=== PATIENT | female | born 1985 | race Caucasian/White ===

== ENCOUNTER → 2020-08-22 16:07 | Outpatient (CLI) | payer OTHER, MEDICAID, SELFPAY ==
[2020-08-22 17:02] LABS: Add Manual Diff / Slide Review NO; Basophils Absolute Auto 0 /uL (0-100); Basophils Percent Auto 0.6 % (0-2); Eosinophils Absolute Auto 100 /uL (0-450); Eosinophils Percent Auto 1.5 % (2-4); Hematocrit 33.8 % (36-46); Hemoglobin 11.3 g/dL (12.0-16.0); Lymphocytes Absolute Auto 1600 /uL (1100-4500); Lymphocytes Percent Auto 32.2 % (25-40); Mean Corpuscular HGB Conc 33.3 % (30-36); Mean Corpuscular Hemoglobin 29.8 PG (26-34); Mean Corpuscular Volume 89.4 fL (80-100); Monocytes Absolute Auto 300 /uL (0-900); Monocytes Percent Auto 7.2 % (3-14); Neutrophils Absolute Auto 2800 /uL (1500-7000); Neutrophils Percent Auto 58.5 % (50-75); Platelet Count 212 X10^3/uL (150-400); Red Blood Cell Count 3.78 X10^6/uL (4.0-5.2); Red Cell Distribution Width 12.9 % (11.6-14.8); White Blood Cell Count 4.8 X10^3/uL (4.5-11.0)
[2020-08-22 17:51] LABS: Follicle Stimulating Hormone 4.45 mIU/mL; Luteinizing Hormone 5.95 mIU/mL
[2020-08-22 17:59] LABS: TSH w/ Reflex to FT4 1.13 uIU/mL (0.47-4.68)
== END ==
PROVIDERS: PCP Family Medicine; Referring Provider Family Medicine; Visit Provider Family Medicine
DX: L65.9 Nonscarring hair loss, unspecified (principal); N91.2 Amenorrhea, unspecified; R53.83 Other fatigue
CPT/HCPCS: 36415; 83001; 83002; 84443; 85025

== ENCOUNTER → 2022-10-06 06:38 | Outpatient (CLI) | payer OTHER, MEDICAID, SELFPAY ==
--- NOTE | 2022-10-06 06:39 | DI.US.S_ITS ---
PROCEDURE: US PELVIC COMPLETE INDICATIONS: DUB TECHNIQUE: Real-time scanning was performed of the pelvic organs, with image documentation. Additional endovaginal scanning was necessary due to incomplete visualization of the adnexal and endometrial structures by transabdominal scanning. COMPARISON: [facility], US, PELVIC COMPLETE, 03/15/2017, 17:26. FINDINGS: Uterus: Uterus is anteverted and normal in size at 10.7 x 7.2 x 6.5 cm. The myometrium is homogeneous. The endometrium measures 14 mm combined thickness. Mid posterior intramural fibroid measuring 1.6 x 1.6 x 1.1 cm. Ovaries: The right ovary measures 4.6 x 3.1 x 2 cm, with a calculated ovarian volume of 15 cc. The left ovary measures 3.1 x 3.1 x 1.6 cm, with a calculated ovarian volume of 8 cc. The ovaries have a normal sonographic appearance. Less than 12 follicles can be seen in each ovary. Right ovary heterogeneous isoechoic mass measuring 2.7 x 2.5 x 2.3 cm. No internal vascularity is seen. Other: Trace free fluid in the pelvis, likely physiologic. IMPRESSION: 1. Endometrium measures 14 mm. 2. Small intramural fibroid measuring 1.6 cm. 3. Right ovarian heterogeneous isoechoic mass measuring 2.7 cm. Suspect an ovarian dermoid cyst. This could be further evaluated with pelvic MRI if clinically indicated. We strive to produce accurate, complete, and clear reports of imaging services. To assist us in improving patient care, this report was composed using standard report templates and voice recognition software. Therefore, it may contain abnormal punctuation, insertions and/or omissions. Occasional wrong-word or sound-alike substitutions may occur. Though we review the report and make efforts to correct it, we do recommend that the report be read carefully in proper context to recognize any text inaccuracies. Dictated by: Stephan Austin M.D. on 10/06/2022 at 7:50 Approved by: Stephan Austin M.D. on 10/06/2022 at 7:59
== END ==
PROVIDERS: PCP Family Medicine; Referring Provider Physician Assistant; Visit Provider Physician Assistant
DX: N92.4 Excessive bleeding in the premenopausal period (principal); D25.1 Intramural leiomyoma of uterus; N83.9 Noninflammatory disorder of ovary, fallopian tube and broad ligament, unspecified
CPT/HCPCS: 36415; 76830; 76856; 82728; 83540; 83550; 84443; 85025; 93976

== ENCOUNTER → 2022-10-06 06:40 | Outpatient (CLI) | payer OTHER, MEDICAID, SELFPAY ==
[2022-10-06 07:44] LABS: Add Manual Diff / Slide Review NO; Basophils Absolute Auto 0 /uL (0-100); Basophils Percent Auto 0.5 % (0-2); Eosinophils Absolute Auto 100 /uL (0-450); Eosinophils Percent Auto 2.1 % (2-4); Hematocrit 36.2 % (36-46); Hemoglobin 12.4 g/dL (12.0-16.0); Lymphocytes Absolute Auto 1500 /uL (1100-4500); Lymphocytes Percent Auto 35.1 % (25-40); Mean Corpuscular HGB Conc 34.3 % (30-36); Mean Corpuscular Hemoglobin 30.3 PG (26-34); Mean Corpuscular Volume 88.3 fL (80-100); Monocytes Absolute Auto 300 /uL (0-900); Monocytes Percent Auto 8.3 % (3-14); Neutrophils Absolute Auto 2200 /uL (1500-7000); Platelet Count 199 X10^3/uL (150-400); Red Cell Distribution Width 13.8 % (11.6-14.8); White Blood Cell Count 4.1 X10^3/uL (4.5-11.0)
[2022-10-06 07:57] LABS: HEMOLYSIS < 15 (0-50); Iron 70 ug/dL (37-170)
[2022-10-06 08:08] LABS: Percent Iron Saturation 27 % (15-50); Total Iron Binding Capacity 259 ug/dL (265-497); Transferrin 205 mg/dL (206-381)
[2022-10-06 08:28] LABS: TSH w/ Reflex to FT4 2.37 uIU/mL (0.47-4.68)
[2022-10-06 08:32] LABS: Ferritin 16 ng/mL (6-137)
== END ==
PROVIDERS: PCP Family Medicine; Referring Provider Physician Assistant; Visit Provider Physician Assistant
DX: N92.4 Excessive bleeding in the premenopausal period (principal)
CPT/HCPCS: 36415; 82728; 83540; 83550; 84443; 85025

== ENCOUNTER → 2022-10-13 08:53 | Outpatient (CLI) | payer OTHER, MEDICAID, SELFPAY ==
[2022-10-13 11:41] LABS: TSH w/ Reflex to FT4 1.68 uIU/mL (0.47-4.68)
== END ==
PROVIDERS: PCP Family Medicine; Referring Provider Obstetrics & Gynecology; Visit Provider Obstetrics & Gynecology
DX: N92.4 Excessive bleeding in the premenopausal period (principal)
CPT/HCPCS: 36415; 83001; 84443

== ENCOUNTER 2023-01-14 12:11 | Day surgery (SDC) | payer OTHER, MEDICAID, SELFPAY ==
[2023-01-11 15:16] VITALS: BMI 35.9
[2023-01-14] VITALS (8 sets, daily range): BP systolic 95–121; BP diastolic 46–77; PULSE 78–106; RESP 10–16; TEMP 36.4–36.9; O2SAT 90–99; BMI 35.9; BMI 35.5
--- NOTE | 2023-01-14 | PATH_ITS ---
[facility] Accession Number: [id number] No. of containers..02 Tissue . 01 Material submitted: . PART A: uterus - UTERUS / BILATERAL FALLOPIAN TUBES PART B: ovary - RIGHT OVARY . 01 Diagnosis: A. Uterus, Cervix, Left and Right Fallopian Tubes, Hysterectomy and Bilateral Salpingectomy: Cervix: Chronic cervicitis. Endometrium: Secretory. Myometrium: Single leiomyoma without significant atypia. Serosa: No significant pathologic abnormalities. Fallopian tubes: Benign benign paratubal cysts. . B. 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 Negative for malignancy. [facility] 01/19/2023 1701 Local . 01 Electronically signed: . Mayi Forrester MD, Pathologist NPI- [id number] . 01 Gross description: . A. Received in formalin labeled with the patient's name, , and uterus and R and L fallopian tubes, and consists of an intact uterus (205 grams, 10.4 SI, 8.0 mL, 5.2 APCM), with attached cervix (3.2 x 2.9 cm), an intact, fimbriated fallopian tube (5.2 x 0.6 cm) and a fragmented fimbriated fallopian tube (reapproximated to measure 5.2 cm in length and 0.6 cm in diameter), with no additional adnexa. The ectocervix is pink-ramos, smooth, and glistening with a purple suture at the approximate 10 o'clock position with no designation per the requisition. The cervical os is patulous and measures 0.9 cm in diameter. The serosa is ramos and smooth with no evidence of adhesion or hemorrhage identified. The anterior paracervical margin is inked blue while the posterior paracervical margin is inked black. The endocervical canal has ramos herringbone mucosa and measures 2.7 cm in length. The endometrial cavity measures 2.6 cm from cornu to cornu, and 5.3 cm in length with red-pink lush endometrium that averages 0.3 cm thick with no lesions identified. The myometrium is pink-ramos and trabecular measuring up to 2.8 cm in maximum thickness and is significant for a single well-circumscribed white whorled nodule measuring 1.0 cm in greatest dimension located intramurally with no hemorrhage or necrosis identified. The intact fallopian tube has ramos smooth serosa with no cystic structures identified, and sectioning reveals an unremarkable stellate lumen. The disrupted fallopian tube has ramos smooth serosa with a cystic structure near the fimbriated end measuring 0.7 cm in greatest dimension filled with cloudy gelatinous material. Sectioning reveals an unremarkable stellate lumen. Gang Boss sections are submitted as follows: A1: Anterior cervix. A2: Posterior cervix. A3: Anterior full thickness section. A4-A5: Composite posterior full thickness section to include nodule. A6: Serosa. A7: Intact fallopian tube to include one-half of bisected fimbriae and cross-sections. A8: Fragmented fallopian tube to include one-half of bisected fimbriae, cystic structure, and cross-sections. B. Received in formalin labeled with the patient's name, , and R. ovary, and consists of a disrupted, cerebriform ovary weighing 14 grams and measuring 4.7 x 2.6 x 2.1 cm. The disrupted area measures 0.9 cm in greatest dimension and reveals ramos grumous material admixed with hair. The external surface is inked blue, and sectioning reveals multiple cystic structures with thin, smooth shay, and no excrescences identified. The cystic structure containing grumous material and hair measures 2.3 x 1.4 x 0.5 cm with adjacent yellow soft tissue. The additional smooth-walled cystic structures contain serous fluid and measure up to 1.2 cm in greatest dimension. The remaining ovarian parenchyma is physiologic and unremarkable with no lesions identified. Gang Boss sections are submitted as follows: B1-B4: Gang Boss cystic structures. B5: Gang Boss normal ovary. (:[id number]) /RICK 01/15/2023 1015 Local . 01 Pathologist provided ICD-10: D25.9 . 01 CPT . 022782, [id number] Specimen Comment: A courtesy copy of this report has been sent to [phone] Performed at: 01 [facility] [address] [place] [address], [place], [place] [id number] MD Wilder Berman MD Phone: [phone]
[2023-01-14] MEDS: LACTATED RINGERS 1,000 ML 42 ML IV (12:51)
[2023-01-14] MEDS: SCOPOLAMINE 1 PATCH TOP (12:54)
[2023-01-14 13:12] LABS: COVID19 -Nasal RAPID Negative (Negative)
--- NOTE | 2023-01-14 13:42 | SUR.OPER ---
Lithotomy on padded OR bed. [place] Pad Positioner under torso. Head on pillow, arms padded and tucked at sides. Legs secured in padded yellow fins stirrups.
[2023-01-14] MEDS: ACETAMINOPHEN 325 MG TABLET 975 MG PO (13:47)
--- NOTE | 2023-01-14 13:57 | PM.PREOP ---
Pre-operative Note COVID-19 COVID-19 status: Negative Result date/Date tested (Pos, Neg/Pending): 01/14/23 Criteria for continued procedure: Non-surgical alternatives not available or appropriate per current SOC Interval Note History & Physical reviewed/Exam performed by Physician: Yes Changes to H&P: No
[2023-01-14] MEDS: BUPIVACAINE 0.5% (PF) 10 ML VIAL INJ (15:22)
[2023-01-14] MEDS: ROPIVACAINE 0.2% PF 2 MG/ML 20ML AMP 20 ML INJ (15:26)
--- NOTE | 2023-01-14 17:06 | PM.GYNOP.1 ---
Operative Date/Time/Diagnoses Date of procedure: 01/14/23 Time of procedure: 14:50 Pre-op diagnosis: Menorrhagia Uterine fibroids Dermoid cyst, right ovary Post-op diagnosis: same Procedure & Clinicians Procedure: Procedures Operation Date: 01/14/23 13:30 Actual Procedure Side Surgeon p Total Laparoscopic Hysterectomy w. bilateral salpingectomy, Right ovarian cystectomy, poss. right oophorectomy Stanley Burns MD Indications: Torrie is a 36-year-old , LMP currently ongoing after starting about 7 weeks ago, who presented in October for evaluation of the menorrhagia.? Patient experienced menarche at age 10 and had regular predictable menses up until about 18-24 months ago.? She is had 6 vaginal births and contraception is by vasectomy.? Starting at 18-24 months ago, she began to have intermenstrual spotting and bleeding which combined with lengthening menses resulted in her often bleeding for weeks at a time periods.? She became anemic and was treated with iron therapy but no other intervention/evaluation was undertaken.? She also started having night sweats about 6 months ago but FSH and LH done 08/2020 were normal and thyroid studies have also been normal.? Of note however is mild elevation of AST on 2 separate occasions.? Recent pelvic ultrasound performed 10/06/2022 shows: FINDINGS:? ?? Uterus:? Uterus is anteverted and normal in size at 10.7 x 7.2 x 6.5 cm. The myometrium is homogeneous. ? The endometrium measures 14 mm combined thickness.? Mid posterior intramural fibroid measuring 1.6 x 1.6 x 1.1 cm. ? Ovaries:? The right ovary measures 4.6 x 3.1 x 2 cm, with a calculated ovarian volume of 15 cc. The left ovary measures 3.1 x 3.1 x 1.6 cm, with a calculated ovarian volume of 8 cc. The ovaries have a normal sonographic appearance. Less than 12 follicles can be seen in each ovary.? Right ovary heterogeneous isoechoic mass measuring 2.7 x 2.5 x 2.3 cm.? No internal vascularity is seen. ? Other:? Trace free fluid in the pelvis, likely physiologic.? ? IMPRESSION:? 1. Endometrium measures 14 mm. ? 2. Small intramural fibroid measuring 1.6 cm. ? 3. Right ovarian heterogeneous isoechoic mass measuring 2.7 cm.? Suspect an ovarian dermoid cyst.? This could be further evaluated with pelvic MRI if clinically indicated. Patient had endometrial sampling and Pap in October, both of which were normal.? She had an abnormal Pap in her early 20s which was treated with colposcopy and cryotherapy but all of her Paps since that time been negative.? We had another extended discussion regarding potential next steps and how the patient would prefer to proceed.? The patient does not want to pursue any option which can not guarantee her resolution of her menorrhagia.? As result she does not wish to have a Mirena IUD inserted, used Depo-Provera, or have an endometrial ablation performed.? Instead she wants to move forward with total laparoscopic hysterectomy and bilateral salpingo oophorectomy.? Ovarian cystectomy on the right side would also be performed at the same time with the possibility of right oophorectomy.? She presents today for preoperative evaluation, counseling, and consent. Surgeon: Stanley Burns Quenching Machine Operator: Judi Luis Anesthesia Type: General Operative Notes Findings: The uterus is 8 weeks in size and myomatous in contour. The anterior and posterior cul-de-sacs are free of any adhesions or endometrial implants. The left ovary and tube are normal. The right tube is also normal but the right ovary is enlarged and contains a 3 cm dermoid cyst within its substance. The remainder of the abdomen and upper abdomen are normal to laparoscopic inspection. Closure Type: primary Specimen(s): left tube, right tube, uterus and other (Right ovary with dermoid cyst) Applied: catheter Estimated blood loss (mL): 200 Blood products transfused: none Procedure in detail: With the patient in modified dorsal lithotomy position preparations were made by prepping and draping the patient in usual manner for vaginal surgery and insertion of Cooper catheter. A pre-surgical time-out was then taken in accordance with [facility] policy. A bivalve speculum was then placed in the vagina and the cervix visualized. The anterior lip of the cervix was then grasped with a single-tooth tenaculum. The uterus was sounded to 9 cm, the endocervical canal dilated slightly, and a VCare uterine manipulator with a large colpotomy cup was placed. The umbilicus was then infiltrated with 0.5% Marcaine with epinephrine. A 2 cm umbilical incision was made vertically and the dissection was carried down to the umbilicus fascia which was grasped with 2 Manuela clamps. Metzenbaum scissors were used to incise the fascia transversely and each angle was secured with 0 Vicryl suture. Peritoneum was then entered under direct vision and a 12 mm Carl cannula was introduced through the incision and secured in place with the stay sutures. The scope was placed through the trocar and the initial assessment of the intra-abdominal contents carried out. A 2nd and 3rd 5 mm port was then placed 1st in the right mid quadrant from then the left mid quadrant by infiltration of the skin and subcutaneous tissues, a 1 cm transverse incision and insertion of the 5 mm bladeless port. Using a 3 puncture technique, the abdomen and pelvis were inspected laparoscopy and photographically documented. Uterus is mobilized with the VCare manipulator and attention turned to the left adnexa. The distal tube was then grasped and the fimbria varicose divided after coagulation with the PowerSeal device. The dissection was then carried out toward the cornua and the fallopian tube amputated. The tube was removed through a 5 mm port. The right ovary was then examined carefully and stabilized with an atraumatic grasping forceps. Using monopolar current, the ovarian capsule was scored and an incision made over the bulk of the dermoid within the right ovary. The surface of the ovary was then scored with monopolar current and the incision the ovary was extended so as to be able to dissect out the dermoid capsule. Unfortunately the dermoid capsule was densely adherent to the ovarian stroma and could not be from the stroma itself. Due to bleeding from the ovary itself and the fact that the ovary could not be safely from the adherent dermoid capsule, the decision was made to remove the right ovary instead of performing a cystectomy. The ovary was mobilized and the infundibulopelvic ligament was then coagulated and divided with the PowerSeal device and the ovary as well as the dermoid cyst debris was removed completely with an Endo-Catch bag. Dissection was then carried down using the PowerSeal device so as to divide the utero-ovarian ligament and the round ligament with blunt and sharp dissection of the broad down to the level of the uterine artery on the left side. The uterine artery was then skeletonized after development of a bladder flap, coagulated, and divided. Once hemostasis was assured on the left side attention was turned to the right and the tube, utero-ovarian ligament, round ligament, and broad ligament were dissected in a fashion exactly the same as it had been on the left. The right uterine artery was then visualized after skeletonization and coagulated and divided. The uterus was seen to mendoza after coagulation of both your arteries and the cup was identified through the vaginal muscularis at its insertion with the body of the cervix. Circumferential excision of the vaginal cup was accomplished without difficulty using monopolar current and the uterus mobilized. The uterus was then removed through the vagina and the vaginal cuff closed [id number] with a series of 0 Vicryl [id number] stitches. Hemostasis was excellent, the abdomen was re-insufflated, and the pelvis inspected laparoscopically. The pelvis was inspected for any abnormality or bleeding, and the ureters were each seen to be peristalsing freely. With complete hemostasis assured, the pneumoperitoneum was vented and the ports removed. All of the 5 mm ports were then closed with 4-0 Monocryl on the skin using inverted interrupted sutures. Skin glue was placed and after the glue was dried, an appropriate dressing was applied. The case was then terminated, the patient awakened, and then transferred to PACU after having tolerated the procedure well. Complications: none Post-operative Condition: stable Disposition: PACU Plan for aftercare: Recovery in ambulatory surgery in discharge home later today if pain is under control and she is tolerating oral intake well.
[2023-01-14] MEDS: OXYCODONE IR 5 MG TABLET PO ×2 (17:18→20:04)
[2023-01-14] MEDS: hydrOXYzine 50 MG/ML INJ 25 MG IM (17:19)
--- NOTE | 2023-01-14 17:24 | SUR.PHASEI ---
Report called to
--- NOTE | 2023-01-14 17:44 | SUR.PHASEI ---
Patient transferred to the floor by stretcher with purse and belongings bag. Patient transferred to the bed independently/SBA. Report given to Promise. VS stable. Abdominal dressings CDI, scant serosang drainage to peripad. IV saline locked.
--- NOTE | 2023-01-14 18:25 | PC.NURSE ---
Pt arrived at 1730 A/O, denies discomfort HL intact/patent Stable post op course. Call light w/in reach, pt calls appropriately for needs. COntinue w/plan of care.
[2023-01-14] MEDS: KETOROLAC 30 MG/ML VIAL IV (19:56)
[2023-01-15] MEDS: OXYCODONE IR 5 MG TABLET PO ×2 (00:01→05:08)
[2023-01-15] MEDS: ACETAMINOPHEN 325 MG TABLET 650 MG PO ×2 (00:02→05:08)
[2023-01-15 00:18] VITALS: BP 116/64; PULSE 86; RESP 16; TEMP 37; O2SAT 97
[2023-01-15] MEDS: SODIUM CHLORIDE 0.9% FLUSH 10 ML IV ×2 (02:03→08:28)
[2023-01-15] MEDS: KETOROLAC 30 MG/ML VIAL IV ×2 (02:03→07:37)
[2023-01-15 05:07] VITALS: BP 104/44; PULSE 81; RESP 15; TEMP 36.8; O2SAT 98
[2023-01-15 06:20] LABS: Add Manual Diff / Slide Review NO; Basophils Absolute Auto 0 /uL (0-100); Basophils Percent Auto 0.3 % (0-2); Eosinophils Absolute Auto 0 /uL (0-450); Eosinophils Percent Auto 0.1 % (2-4); Hematocrit 32.7 % (36-46); Hemoglobin 11.5 g/dL (12.0-16.0); Lymphocytes Absolute Auto 1100 /uL (1100-4500); Lymphocytes Percent Auto 11.5 % (25-40); Mean Corpuscular HGB Conc 35.1 % (30-36); Mean Corpuscular Hemoglobin 31.2 PG (26-34); Monocytes Absolute Auto 600 /uL (0-900); Monocytes Percent Auto 6.2 % (3-14); Neutrophils Absolute Auto 8000 /uL (1500-7000); Neutrophils Percent Auto 81.9 % (50-75); Platelet Count 237 X10^3/uL (150-400); Red Blood Cell Count 3.67 X10^6/uL (4.0-5.2); Red Cell Distribution Width 13.2 % (11.6-14.8); White Blood Cell Count 9.8 X10^3/uL (4.5-11.0)
--- NOTE | 2023-01-15 06:24 | PC.NURSE ---
Cooper catheter discontinued @ 0600, tolerated procedure well. No C/O pain & any discomfort, will report to day RN.
--- NOTE | 2023-01-15 07:49 | P.DS_ITS ---
History of Present Illness History of Present Illness Date Patient Seen: 01/15/23 Time Patient Seen: 07:49 Chief complaint: Menorrhagia, uterine fibroids, dermoid cyst, right Narrative: Torrie is a 36-year-old , LMP currently ongoing after starting about 7 weeks ago, who presented in October for evaluation of the menorrhagia.? Patient experienced menarche at age 10 and had regular predictable menses up until about 18-24 months ago.? She is had 6 vaginal births and contraception is by vasectomy.? Starting at 18-24 months ago, she began to have intermenstrual spotting and bleeding which combined with lengthening menses resulted in her often bleeding for weeks at a time periods.? She became anemic and was treated with iron therapy but no other intervention/evaluation was undertaken.? She also started having night sweats about 6 months ago but FSH and LH done 08/2020 were normal and thyroid studies have also been normal.? Of note however is mild eleva tion of AST on 2 separate occasions.? Recent pelvic ultrasound performed 10/06/2022 shows: FINDINGS:? ?? Uterus:? Uterus is anteverted and normal in size at 10.7 x 7.2 x 6.5 cm. The myometrium is homogeneous. ? The endometrium measures 14 mm combined thickness.? Mid posterior intramural fibroid measuring 1.6 x 1.6 x 1.1 cm. ? Ovaries:? The right ovary measures 4.6 x 3.1 x 2 cm, with a calculated ovarian volume of 15 cc. The left ovary measures 3.1 x 3.1 x 1.6 cm, with a calculated ovarian volume of 8 cc. The ovaries have a normal sonographic appearance. Less than 12 follicles can be seen in each ovary.? Right ovary heterogeneous isoechoic mass measuring 2.7 x 2.5 x 2.3 cm.? No internal vascularity is seen. ? Other:? Trace free fluid in the pelvis, likely physiologic.? ? IMPRESSION:? 1. Endometrium measures 14 mm. ? 2. Small intramural fibroid measuring 1.6 cm. ? 3. Right ovarian heterogeneous isoechoic mass measuring 2.7 cm.? Suspect an ovarian dermoid cyst.? This could be further evaluated with pelvic MRI if clinically indicated. Patient had endometrial sampling and Pap in October, both of which were normal.? She had an abnormal Pap in her early 20s which was treated with colposcopy and cryotherapy but all of her Paps since that time been negative.? We had another extended discussion regarding potential next steps and how the patient would prefer to proceed.? The patient does not want to pursue any option which can not guarantee her resolution of her menorrhagia.? As result she does not wish to have a Mirena IUD inserted, used Depo-Provera, or have an endometrial ablation performed.? Instead she wants to move forward with total laparoscopic hysterectomy and bilateral salpingo oophorectomy.? Ovarian cystectomy on the right side would also be performed at the same time with the possibility of right oophorectomy.? She is admitted now for her scheduled surgery. Discharge Providers Provider Date of admission: 01/14/2023 Discharge Date: 01/15/23 Primary care physician: Andrea Chen MD Discharge provider: Stanley Burns MD Summary Hospital Course Discharge Diagnosis: Menorrhagia Uterine fibroids Dermoid cyst, right ovary Status post total laparoscopic hysterectomy with left salpingectomy and right salpingo oophorectomy. Hospital Course: Torrie was admitted on the morning of 01/14/2023 in early on the afternoon of 01/14/2023 underwent an uneventful total laparoscopic hysterectomy with left salpingectomy and right salpingo-oophorectomy. Details of the procedure well summarized on my operative note of that date. Following surgery the patient has done extremely well with prompt return of bowel and bladder function, she is ambulating independently, tolerating regular diet, and her pain is well controlled with oral pain medications. She will be discharged at this time to home in an afebrile normotensive condition after counseling regarding precautionary symptoms, limitations activity, medications, and plans for follow- up which will be in 2 weeks. Medications at discharge will include resumption of all of her preadmission medications and oxycodone 5 mg, 1 tab p.o. q.6 to 8 hours as needed pain. In addition she is prescribed Cipro 500 mg p.o. b.i.d. x5 days for UTI prophylaxis following catheterization. Status at Discharge Cognitive/behavioral status at discharge: oriented Functional status at discharge: independent ambulation Overall status at discharge: patient is progressing back to baseline Time Spent with Patient Time spent: Less than 30 minutes Exam Vital Signs (past 8 hours): - 01/15/23 00:18 01/15/23 05:07 Temperature 98.6 F 98.2 F Pulse Rate 86 81 Respiratory Rate 16 15 Blood Pressure 116/64 104/44 L Pulse Oximetry 97 98 Oxygen Flow Rate 0 0 Oxygen Delivery Method Room Air Oxygen Flow Rate 0 Const General: cooperative and comfortable Nutritional Appearance: average body habitus Orientation: alert and oriented x3 HENMT Head: normal to inspection, atraumatic and abrasion Ears: hearing grossly normal bilaterally Face and sinus: face symmetric Eyes General: appearance normal, both eyes and all related structures Conjunctivae: conjunctivae normal Sclera: sclerae normal EOM: EOM intact bilaterally Neck Neck: normal visual inspection Resp Effort & Inspection: normal respiratory effort and able to speak in complete sentences Auscultation: clear to auscultation bilaterally Cardio Rate: regular rate Rhythm: regular rhythm Heart Sounds: S1 normal, S2 normal and no murmurs GI Inspection: normal to inspection and incision (Surgical dressings clean and dry) Palpation: soft, no hepatosplenomegaly and tender (Mild, diffuse postsurgical tenderness) External Female Exam: other (No significant bleeding noted) Extrem General: no calf tenderness Psych Appearance: grossly normal Mental Status: mental status grossly normal Speech and Movement: speech and movement normal Mood: congruent mood Affect: normal affect Attitude: cooperative Thought Process: normal Thought Content: normal Judgment: judgment good Objective Labs 01/15/23 06:06 Labs: Laboratory Results - last 24 hr 01/14/23 01/15/23 12:50 06:06 WBC 9.8 RBC 3.67 L Hgb 11.5 L Hct 32.7 L MCV 89.0 MCH 31.2 MCHC 35.1 RDW 13.2 Plt Count 237 Neut % (Auto) 81.9 H Lymph % (Auto) 11.5 L [place] % (Auto) 6.2 Eos % (Auto) 0.1 L Baso % (Auto) 0.3 Neut # (Auto) 8000 H Lymph # (Auto) 1100 [place] # (Auto) 600 Eos # (Auto) 0 Baso # (Auto) 0 SARS-CoV-2 (PCR) Negative [facility] Medical History (Updated 10/27/22 @ 15:37 by Stanley Burns MD) Spontaneous vaginal delivery Social History household members: spouse Smoking Status: Former smoker alcohol intake: never Discharge Assessment & Plan Assessment and Plan Assessment: Menorrhagia Uterine fibroids Dermoid cyst, right ovary Status post total laparoscopic hysterectomy with left salpingectomy and right salpingo oophorectomy Discharge Plan Discharge Plan Patient Disposition: Home Provider Discharge Comment: Please review the written instructions you received when you were discharged from the hospital. Your follow-up appointment will be 2 weeks after your procedure and I look forward to seeing you then. If however in the meanwhile you have any questions, concerns, or other issues, please contact me either through the office phone at [phone], or via the patient portal. Discharge orders & Medications Discharge Orders: Discharge (Order); Ordered 01/15/23 Ordered By: Stanley Burns Prescriptions: New oxycodone 5 mg tablet 5 mg PO Q6H PRN (Reason: pain) 5 Days Qty: 20 0RF ciprofloxacin HCl [Cipro] 500 mg tablet 500 mg PO BID 5 Days Qty: 10 0RF Continued sertraline 100 mg tablet 200 mg PO DAILY Qty: 60 4RF Follow up/Referrals: Andrea Chen MD [Primary Care Provider] - Stanley Burns MD [Physician] - Diet/Activity/Treatments Diet: Diet as Tolerated Activity: As tolerated Other treatments: [id number]-rrlnjai Tylenol and/or ibuprofen may be used for additional pain relief. Shdx-lfz-msynafy stool softeners and/or MiraLax may be used as needed for constipation. Skin/Wound/Dressing Care Report to your healthcare provider any signs of infection, such as:: chills, fever, increased pain, unusual drainage and unusual redness Dressing: Dressing should be removed on the morning of 01/17/2023 Visit Report/Discharge Packet Instructions: DI for Hysterectomy, DI for Laparoscopy, DI for Prescription Opioid Use Print Language: [place] Discharge Data Primary Care Provider: Andrea Chen Attending Provider: Stanley Burns Quality VTE Deep Vein Thrombosis/Pulmonary Embolism Present on Admission: No
[2023-01-15 08:23] VITALS: BP 109/49; PULSE 67; RESP 16; TEMP 36.3; O2SAT 99
[2023-01-15] MEDS: SERTRALINE 50 MG TABLET 200 MG PO (08:25)
--- NOTE | 2023-01-15 09:25 | PC.NURSE ---
Pt A&Ox4, VSS, independent in the room. IV removed, tolerated well. Discharge information reviewed with patient and spouse, patient able to teach back independently. Pt declined wheelchair for escort out. Pt escorted downstairs by spouse and discharged home with ride from spouse.
== END 2023-01-15 09:24 | disposition home or self-care (01) ==
LOC: OR 12:12 → AC 12:12
PROVIDERS: PCP Family Medicine; Referring Provider Obstetrics & Gynecology; Visit Provider Obstetrics & Gynecology
PROC: 0UT94ZZ Resection of Uterus, Percutaneous Endoscopic Approach (ICD-10-PCS; CPT 58571; principal; 2023-01-14 13:30)
DX: N92.0 Excessive and frequent menstruation with regular cycle (principal); D25.1 Intramural leiomyoma of uterus; Z20.822 Contact with and (suspected) exposure to COVID-19; D27.0 Benign neoplasm of right ovary; N72 Inflammatory disease of cervix uteri; N83.8 Other noninflammatory disorders of ovary, fallopian tube and broad ligament
CPT/HCPCS: 58571; 36415; 85025; 87635; C9803; J0690; J1100; J1170; J1885; J2405; J2704; J2795; J3010; J3410

== ENCOUNTER → 2023-08-12 15:15 | Outpatient (CLI) | payer OTHER, MEDICAID, SELFPAY ==
[2023-01-14 17:35] VITALS: BMI 35.5
== END ==
PROVIDERS: Family Provider Family Medicine; PCP Family Medicine; Referring Provider Physician Assistant; Visit Provider Physician Assistant
DX: R00.2 Palpitations (principal); R00.0 Tachycardia, unspecified; R06.02 Shortness of breath
CPT/HCPCS: 93246

== ENCOUNTER 2024-05-16 11:31 | Emergency (ER) | payer OTHER, MEDICAID, SELFPAY ==
[2024-05-16 11:32] VITALS: BMI 35.5
[2024-05-16 11:36] VITALS: BP 143/95; PULSE 85; RESP 18; TEMP 37.3; O2SAT 100; BMI 34.5
--- NOTE | 2024-05-16 11:44 | DI.RAD.S_ITS ---
PROCEDURE: XR CHEST 1V INDICATIONS: chest pain TECHNIQUE: One view of the chest was acquired. COMPARISON: None. FINDINGS: Surgical changes and devices: None. Lungs and pleura: Lungs are clear. No pleural effusions or pneumothorax. Mediastinum: Mediastinal contours appear normal. Heart size is normal. Bones and chest wall: No suspicious bony lesions. Overlying soft tissues appear unremarkable. IMPRESSION: No acute cardiopulmonary abnormality is seen. Dictated by: Joy Rolle MD, PhD on 05/16/2024 at 12:31 Approved by: Joy Rolle MD, PhD on 05/16/2024 at 12:31
[2024-05-16 11:45] VITALS: BP 138/79; PULSE 86; O2SAT 99
--- NOTE | 2024-05-16 11:50 | EKG_ITS ---
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
--- NOTE | 2024-05-16 11:51 | ED_ITS ---
HPI - Chest Pain General Chief Complaint: Chest Pain Stated Complaint: pain in heart Time Seen by Provider: 05/16/24 11:46 Source: patient Mode of arrival: Ambulatory History of Present Illness HPI narrative: Patient is a 38-year-old female. She states that she was here for ?heart pain? but according to her history it is chest discomfort and palpitations. She initially had discomfort about a year ago. Was seen by her primary doctor. Had a Holter monitor. Was told everything was okay. Was offered a referral to see Cardiology with the patient declined. She states that everything seemed to be okay until just recently where she started to have the symptoms once again. States she had them at the end of last week. She also had 1 episode of vomiting. She was no longer nauseous. She was currently having the discomfort now. Also having palpitations. No fevers. Related Data Previous Rx's Medication Instructions Recorded sertraline 100 mg tablet 200 mg (2 x 100 mg) PO DAILY #180 03/27/24 tabs Allergies Allergy/AdvReac Type Severity Reaction Status Date / Time No Known Drug Allergies Allergy Verified 08/03/23 16:27 Review of Systems Review of Systems ROS Unobtainable: All systems reviewed & are unremarkable except as noted in HPI and below Patient History Medical History Dermoid cyst of right ovary Menorrhagia, premenopausal Spontaneous vaginal delivery Social History household members: spouse Smoking Status: Current every day smoker alcohol intake: never Smoking Status: Current every day smoker tobacco type: vaping Substance Use Type: does not use Exam Initial Vital Signs Initial Vital Signs: Vital Signs Temperature 99.1 F 05/16/24 11:36 Pulse Rate 85 05/16/24 11:36 Respiratory Rate 18 05/16/24 11:36 Blood Pressure 143/95 H 05/16/24 11:36 Pulse Oximetry 100 05/16/24 11:36 Oxygen Delivery Method Room Air 05/16/24 11:36 Const General: cooperative, comfortable and No ill appearing HENIN Head: normal to inspection and normocephalic Resp Effort & Inspection: normal respiratory effort Auscultation: clear to auscultation bilaterally Cardio Rate: regular rate Rhythm: regular rhythm GI Inspection: normal to inspection Skin General: no rashes or lesions noted Neuro General: patient alert, patient awake and moves all extremities Extrem General: capillary refill normal Course Orders Ordered: ED Orders 05/16/24 11:44 XR chest 1V Stat EKG-12 Lead Stat 05/16/24 12:11 Complete Blood Count AUTO DIFF Stat Comprehensive Metabolic Panel Stat Lipase Stat Magnesium Stat Troponin & CK Cardiac Panel Stat Vital Signs Vital signs: Vital Signs - 8 hr 05/16/24 11:36 05/16/24 11:45 05/16/24 11:45 Temperature 99.1 F Pulse Rate 85 86 Respiratory Rate 18 Blood Pressure 143/95 H 138/79 Pulse Oximetry 100 99 Oxygen Delivery Method Room Air 05/16/24 12:00 05/16/24 12:00 05/16/24 12:30 Temperature Pulse Rate 83 77 Respiratory Rate 20 18 Blood Pressure 127/65 Pulse Oximetry 97 97 Oxygen Delivery Method Room Air 05/16/24 12:30 Temperature Pulse Rate Respiratory Rate Blood Pressure 106/60 Pulse Oximetry Oxygen Delivery Method MDM - Chest Pain Lab Data Attestation: I reviewed the patient's lab results. 05/16/24 12:11 05/16/24 12:11 Labs: Lab Results 05/16/24 Range/Units 12:11 WBC 5.1 (4.5-11.0) X10^3/uL RBC 3.97 L (4.0-5.2) X10^6/uL Hgb 12.3 (12.0-16.0) g/dL Hct 36.2 (36-46) % MCV 91.2 (80-100) fL MCH 31.1 (26-34) PG MCHC 34.1 (30-36) % RDW 13.0 (11.6-14.8) % Plt Count 239 (150-400) X10^3/uL Neut % (Auto) 59.1 (50-75) % Lymph % (Auto) 33.1 (25-40) % [place] % (Auto) 6.2 (3-14) % Eos % (Auto) 0.9 L (2-4) % Baso % (Auto) 0.7 (0-2) % Neut # (Auto) 3000 (1728-6118) /uL Lymph # (Auto) 1700 (3495-7255) /uL [place] # (Auto) 300 (0-900) /uL Eos # (Auto) 0 (0-450) /uL Baso # (Auto) 0 (0-100) /uL Sodium 133 L (137-145) mmol/L Potassium 4.0 (3.4-5.1) mmol/L Chloride 102 (98-107) mmol/L Carbon Dioxide 26 (22-32) mmol/L BUN 11 (7-17) mg/dL Creatinine 0.57 (0.52-1.04) mg/dL Estimated GFR > 60 (>60) mL/min BUN/Creatinine Ratio 19.3 (6-22) Glucose 104 H (70-100) mg/dL Calcium 9.1 (8.4-10.2) mg/dL Magnesium 1.5 L (1.6-2.3) mg/dL Total Bilirubin 0.5 (0.2-1.3) mg/dL AST 20 (14-36) IU/L ALT 14 (<35) IU/L Alkaline Phosphatase 60 (38-126) U/L Total Creatine Kinase 54 (30-135) U/L Troponin I < 0.012 (0.01-0.034) ng/mL Total Protein 7.3 (6.3-8.2) g/dL Albumin 4.3 (3.5-5.0) g/dL Globulin 3.0 (1.7-4.1) g/dL Albumin/Globulin Ratio 1.4 (1.0-2.8) Lipase 51 (23-300) U/L Imaging Data Chest x-ray: Radiologist's Impression: PROCEDURE: XR CHEST 1V INDICATIONS: chest pain TECHNIQUE: One view of the chest was acquired. COMPARISON: None. FINDINGS: Surgical changes and devices: None. Lungs and pleura: Lungs are clear. No pleural effusions or pneumothorax. Mediastinum: Mediastinal contours appear normal. Heart size is normal. Bones and chest wall: No suspicious bony lesions. Overlying soft tissues appear unremarkable. IMPRESSION: No acute cardiopulmonary abnormality is seen. ECG Data Attestation: I personally reviewed and interpreted this ECG as follows: Interpretation: Sinus rhythm Ventricular rate 90 Normal QRS Normal QTC Nonspecific ST T wave changes MDM Narrative Medical decision making narrative: Troponin is negative. Chest x-rays negative. Nonischemic EKG. Low risk for ACS. Low suspicion for PE. Patient does not have pneumonia. No skin changes over the area concerning for cellulitis. Advised that the patient contact her primary care doctor for a follow-up. She was given return precautions. She expressed understanding and agreement. Discharge Plan Departure Patient Disposition: Home Clinical Impression: Atypical chest pain Instructions: DI for Atypical Chest Pain Activity Restrictions/Additional Instructions: Recommend that you contact your primary care doctor for a follow-up to discuss further evaluation if needed. Return to the emergency department for new symptoms. Prescriptions: No Action sertraline 100 mg tablet 200 mg PO DAILY Qty: 180 0RF Referrals: Andrea Chen MD [Primary Care Provider] - Stand Alone Forms: Patient Portal/API
[2024-05-16 12:00] VITALS: BP 127/65; PULSE 83; RESP 20; O2SAT 97
[2024-05-16 12:25] LABS: Add Manual Diff / Slide Review NO; Basophils Absolute Auto 0 /uL (0-100); Basophils Percent Auto 0.7 % (0-2); Eosinophils Absolute Auto 0 /uL (0-450); Eosinophils Percent Auto 0.9 % (2-4); Hematocrit 36.2 % (36-46); Hemoglobin 12.3 g/dL (12.0-16.0); Lymphocytes Absolute Auto 1700 /uL (1100-4500); Lymphocytes Percent Auto 33.1 % (25-40); Mean Corpuscular HGB Conc 34.1 % (30-36); Mean Corpuscular Hemoglobin 31.1 PG (26-34); Mean Corpuscular Volume 91.2 fL (80-100); Monocytes Absolute Auto 300 /uL (0-900); Monocytes Percent Auto 6.2 % (3-14); Neutrophils Absolute Auto 3000 /uL (1500-7000); Neutrophils Percent Auto 59.1 % (50-75); Platelet Count 239 X10^3/uL (150-400); Red Blood Cell Count 3.97 X10^6/uL (4.0-5.2); White Blood Cell Count 5.1 X10^3/uL (4.5-11.0)
[2024-05-16 12:30] VITALS: BP 106/60; PULSE 77; RESP 18; O2SAT 97
[2024-05-16 12:39] LABS: Alanine Aminotransferase 14 IU/L (<35); Albumin 4.3 g/dL (3.5-5.0); Albumin Globulin Ratio 1.4 (1.0-2.8); Alkaline Phosphatase 60 U/L (38-126); Aspartate Aminotransferase 20 IU/L (14-36); BUN Creatinine Ratio 19.3 (6-22); Bilirubin Total 0.5 mg/dL (0.2-1.3); Blood Urea Nitrogen 11 mg/dL (7-17); Calcium 9.1 mg/dL (8.4-10.2); Carbon Dioxide 26 mmol/L (22-32); Chloride 102 mmol/L (98-107); Creatine Kinase 54 U/L (30-135); Estimated Glomerular Filt Rate > 60 mL/min (>60); Glucose 104 mg/dL (70-100); HEMOLYSIS < 15 (0-50); Lipase 51 U/L (23-300); Magnesium 1.5 mg/dL (1.6-2.3); Sodium 133 mmol/L (137-145); Total Protein 7.3 g/dL (6.3-8.2)
[2024-05-16 12:50] LABS: Troponin I < 0.012 ng/mL (0.01-0.034)
[2024-05-16 13:00] VITALS: BP 114/68; PULSE 80; RESP 19; O2SAT 97
== END 2024-05-16 13:20 | disposition home or self-care (01) ==
PROVIDERS: Emergency Provider Emergency Medicine; Family Provider Family Medicine; PCP Family Medicine
DX: R07.89 Other chest pain (principal); R00.2 Palpitations
CPT/HCPCS: 36415; 71045; 80053; 82550; 83690; 83735; 84484; 85025; 93005; 99284

== ENCOUNTER 2024-05-18 14:56 | Emergency (ER) | payer OTHER, MEDICAID, SELFPAY ==
[2024-05-18 11:28] VITALS: BMI 35.5
[2024-05-18 15:02] VITALS: BP 127/68; PULSE 76; RESP 18; O2SAT 100; BMI 32.5
--- NOTE | 2024-05-18 15:50 | ED_ITS ---
HPI - Chest Pain <Linda Gil PA-C - Last Filed: 05/18/24 20:38> General Chief Complaint: Chest Pain Stated Complaint: chest px Time Seen by Provider: 05/18/24 15:13 History of Present Illness HPI narrative: 38-year-old woman who vapes but does not smoke cigarettes presents with concern for persistent chest pain and worsening symptoms. Patient was seen in this emergency department a few days ago for chest pain with a negative workup at that time. Returned today after being seen for her ED follow-up visit as she has been having persistent and somewhat worse symptoms since she was in the ER a few days ago. Patient endorses that since Wednesday she has been dealing with primarily left-sided but central chest discomfort that feels like a sharp pain. She has noted that she has been feeling fatigued and exertion makes her more tired than usual, she endorses that today even just walking to the car she felt a little short of breath. She states she knows her body and this feels very atypical for her. The last few nights she is noted her pain seems worse if she is lying on her left side if she turns on her right side she still feels it but it was not as bad. She denies any recent upper respiratory viral type symptoms in the last few weeks such as congestion cough fevers chills or runny nose. She has been noting that since her symptoms started on Wednesday she feels like her heart is pounding at times and she gets sweaty especially on her face or neck when she does activities and gets more tired than usual. 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 She did not follow up with Cardiology as she states her symptoms resolved and had not returned until this past weekend when she felt she was having similar symptoms again. On further questioning patient also acknowledges that she feels she has had chronic issues for a few months with swelling of her right calf and lower leg. She states she never has had any pain there or any redness or heat that she is noted but she somewhat often feels that her right calf gets swollen as compared to the left. She denies fevers, chills, nausea, vomiting, diarrhea, abdominal pain, back pain, neck pain or other symptoms. Related Data Previous Rx's Medication Instructions Recorded sertraline 100 mg tablet 200 mg (2 x 100 mg) PO DAILY #180 03/27/24 tabs amoxicillin 875 mg-potassium 1 tab PO Q12H 10 days #20 tabs 05/18/24 clavulanate 125 mg tablet Allergies Allergy/AdvReac Type Severity Reaction Status Date / Time No Known Drug Allergies Allergy Verified 05/18/24 13:59 Review of Systems <Linda Gil PA-C - Last Filed: 05/18/24 20:38> Review of Systems Narrative: See HPI Patient History <Linda Gil PA-C - Last Filed: 05/18/24 20:38> Medical History Dermoid cyst of right ovary Menorrhagia, premenopausal Spontaneous vaginal delivery Social History household members: spouse Smoking Status: Current every day smoker alcohol intake: never Smoking Status: Current every day smoker tobacco type: vaping Substance Use Type: does not use Exam <Linda Gil PA-C - Last Filed: 05/18/24 20:38> Narrative Exam Narrative: GENERAL: [38] year old patient appears stated age. Well-developed patient, in mild distress. HEAD: Atraumatic. Normocephalic. EYES: Pupils equal round and reactive. Extraocular motions intact. No scleral icterus. No injection or drainage. ENT: Nose without bleeding, purulent drainage. Throat without erythema, tonsillar hypertrophy or exudate. Airway patent. NECK: Trachea midline. Non tender CARDIOVASCULAR: Regular rate and rhythm without murmurs, gallops, or rubs. RESPIRATORY: Clear to auscultation. Questions slightly diminished lung sounds on the left upper and mid enrique, otherwise Breath sounds equal bilaterally. No wheezes, rales, or rhonchi. GASTROINTESTINAL: Abdomen nondistended. EXTREMITIES: The right and left calf appear equal in circumference. There is no erythema heat or tenderness noted of the right calf or of the popliteal fossa. No edema or joint tenderness, pedal pulses intact 2+. NEURO: AOx3. SKIN: No rash or erythema of visible areas Initial Vital Signs Initial Vital Signs: Vital Signs Pulse Rate 76 05/18/24 15:02 Respiratory Rate 18 05/18/24 15:02 Blood Pressure 127/68 05/18/24 15:02 Pulse Oximetry 100 05/18/24 15:02 Oxygen Delivery Method Room Air 05/18/24 15:02 <Mary Anne Liu DO - Last Filed: 05/19/24 03:06> Initial Vital Signs Initial Vital Signs: Vital Signs Pulse Rate 76 05/18/24 15:02 Respiratory Rate 18 05/18/24 15:02 Blood Pressure 127/68 05/18/24 15:02 Pulse Oximetry 100 05/18/24 15:02 Oxygen Delivery Method Room Air 05/18/24 15:02 Course <Linda Gil PA-C - Last Filed: 05/18/24 20:38> Orders Ordered: Discontinued Medications Amoxicillin/Clavulanate Potassium (Amoxicillin/Clav 875/125 Mg) 1 tab PO NOW ONE Stop: 05/18/24 18:41 Last Admin: 05/18/24 18:45 Dose: 1 tab Documented By: CELIO Vital Signs Vital signs: Vital Signs - 8 hr 05/18/24 15:02 05/18/24 17:05 05/18/24 18:46 Pulse Rate 76 88 77 Respiratory Rate 18 16 16 Blood Pressure 127/68 114/56 L 102/64 Pulse Oximetry 100 97 99 Oxygen Delivery Method Room Air Room Air Room Air <Mary Anne Liu DO - Last Filed: 05/19/24 03:06> Orders Ordered: Discontinued Medications Amoxicillin/Clavulanate Potassium (Amoxicillin/Clav 875/125 Mg) 1 tab PO NOW ONE Stop: 05/18/24 18:41 Last Admin: 05/18/24 18:45 Dose: 1 tab Documented By: CELIO Vital Signs Vital signs: Vital Signs - 8 hr 05/18/24 15:02 05/18/24 17:05 05/18/24 18:46 Pulse Rate 76 88 77 Respiratory Rate 18 16 16 Blood Pressure 127/68 114/56 L 102/64 Pulse Oximetry 100 97 99 Oxygen Delivery Method Room Air Room Air Room Air MDM - Chest Pain <Linda Gil PA-C - Last Filed: 05/18/24 20:38> Differential Diagnosis Differential diagnosis: Likely atypical chest pain, chest pain and other (Pulmonary embolism, atypical pneumonia, EVALI) Medical Records Data Attestation: I reviewed the patient's medical records. Lab Data Attestation: I reviewed the patient's lab results. 05/18/24 16:23 05/18/24 16:23 Labs: Lab Results 05/18/24 05/18/24 Range/Units 16:23 17:52 WBC 4.5 (4.5-11.0) X10^3/uL RBC 3.91 L (4.0-5.2) X10^6/uL Hgb 12.2 (12.0-16.0) g/dL Hct 36.0 (36-46) % MCV 92.2 (80-100) fL MCH 31.3 (26-34) PG MCHC 33.9 (30-36) % RDW 13.0 (11.6-14.8) % Plt Count 248 (150-400) X10^3/uL Neut % (Auto) 61.4 (50-75) % Lymph % (Auto) 29.3 (25-40) % [place] % (Auto) 7.1 (3-14) % Eos % (Auto) 1.3 L (2-4) % Baso % (Auto) 0.9 (0-2) % Neut # (Auto) 2700 (5536-7054) /uL Lymph # (Auto) 1300 (2441-4308) /uL [place] # (Auto) 300 (0-900) /uL Eos # (Auto) 100 (0-450) /uL Baso # (Auto) 0 (0-100) /uL ESR 22 H (0-20) MM/HR D-Dimer 570 H (<500) ng/ml Sodium 138 (137-145) mmol/L Potassium 3.8 (3.4-5.1) mmol/L Chloride 108 H (98-107) mmol/L Carbon Dioxide 23 (22-32) mmol/L BUN 7 (7-17) mg/dL Creatinine 0.56 (0.52-1.04) mg/dL Estimated GFR > 60 (>60) mL/min BUN/Creatinine Ratio 12.5 (6-22) Glucose 99 (70-100) mg/dL Calcium 8.9 (8.4-10.2) mg/dL Total Bilirubin 0.6 (0.2-1.3) mg/dL AST 26 (14-36) IU/L ALT 13 (<35) IU/L Alkaline Phosphatase 54 (38-126) U/L Total Creatine Kinase 61 (30-135) U/L Troponin I < 0.012 (0.01-0.034) ng/mL C-Reactive Protein < 0.5 (<1.0) mg/dL NT-Pro-B Natriuret Pep 40 (<125) pg/mL Total Protein 7.0 (6.3-8.2) g/dL Albumin 4.3 (3.5-5.0) g/dL Globulin 2.7 (1.7-4.1) g/dL Albumin/Globulin Ratio 1.6 (1.0-2.8) Lipase 43 (23-300) U/L SARS-CoV-2 (PCR) Negative (Negative) Imaging Data CT scan - chest: My Impression: Agree with Radiology interpretation Radiologist's Impression: [address] [address] [address] Scan Report Signed Patient: Torrie Clemens MR#: [id number] : 1985 Acct:[id number] Age/Sex: 38 / F Date of Service: 05/18/24 Loc: ED Accession Number: [id number] Procedure: CT angio chest PE protocol Ordering Provider: Linda Gil PA-C PROCEDURE: CT ANGIO CHEST PE PROTOCOL INDICATIONS: chest pain, elevated dimer, exertional fatigue/dyspnea TECHNIQUE: After the administration of intravenous contrast, 2 mm thick sections acquired from the pulmonary apices to the posterior costophrenic angles. 3-dimensional maximum intensity projection (MIP) coronal and sagittal reformats were then acquired through the thorax. For radiation dose reduction, the following was used: automated exposure control, adjustment of mA and/or kV according to patient size. COMPARISON: None. FINDINGS: Image quality: Diagnostic Lungs and pleura: Mild basal ground-glass opacities. No dense airspace disease Trace bilateral effusions. Mediastinum, heart, and esophagus: No acute pulmonary embolism. The esophagus appears unremarkable. No pathologic lymph nodes by size criteria Chest wall and thyroid: Unremarkable Upper abdomen: No gross abnormality on these arterial phase images Bones: No acute or suspicious osseous finding IMPRESSION: No acute pulmonary embolism. Mild basal ground-glass opacities and trace effusions. Findings could represent atypical infection versus edema. Consider future imaging surveillance to assess for resolution. Dictated by: David Nath M.D. on 05/18/2024 at 17:35 Approved by: David Nath M.D. on 05/18/2024 at 17:37 ECG Data Attestation: I personally reviewed and interpreted this ECG as follows: Interpretation: Heart rate 84, normal sinus rhythm no ectopy or ST changes except there is T- wave inversion in V1 Treatment and disposition Shared decision making:: Shared decision-making was used in determining plan of care for this patient and labs and imaging. As well as outpatient follow up MDM Narrative Medical decision making narrative: This is a 38-year-old woman with obesity and vaping who had presented to the emergency department a few days prior with chest pain that had begun on Wednesday 5 days ago. Returned today to the ER due to persistent and worsening pain and also having sweating associated with exertion and some shortness of breath recently. A repeat cardiac workup obtained; however x-ray was deferred pending a D-dimer given possible plan for CT PE. D-dimer did return elevated at 570, after discussion with the patient a CT PE protocol was obtained for further evaluation. Pericarditis was also considered as patient reported pain was more prominent when lying on her left side and possibly positional. Inflammatory markers were not elevated. Patient's other labs were unremarkable. Her CT scan however though it was negative for PE did show ground-glass opacities and some edema in the basilar lung enrique concerning for infectious process; possibly vaping associated lung injury. Discussed this patient with the attending physician Dr. Liu prior to discharge who agreed with plan for Augmentin for 10 days and close follow up with primary care. Again advise the patient to consider seeing Cardiology also now possibly pulmonology, and also encouraged her to consider quitting vaping as this could be contributory to her atypical pneumonia. Patient's vitals were quite normal appearing throughout her stay she did sometimes have saturations around 95 % on room air however no other concerning symptoms suggesting of severe/acute illness or sepsis. Her EKG and cardiac labs were unremarkable again today. She is advised if she does not fully improve with antibiotics or has persistent symptoms she she should seek further evaluation with specialists, if no improvement or worsening, return to the emergency department. Return precautions provided, follow-up plan discussed, all questions answered <Mary Anne Liu, - Last Filed: 05/19/24 03:06> Lab Data Labs: Lab Results 05/18/24 05/18/24 Range/Units 16:23 17:52 WBC 4.5 (4.5-11.0) X10^3/uL RBC 3.91 L (4.0-5.2) X10^6/uL Hgb 12.2 (12.0-16.0) g/dL Hct 36.0 (36-46) % MCV 92.2 (80-100) fL MCH 31.3 (26-34) PG MCHC 33.9 (30-36) % RDW 13.0 (11.6-14.8) % Plt Count 248 (150-400) X10^3/uL Neut % (Auto) 61.4 (50-75) % Lymph % (Auto) 29.3 (25-40) % [place] % (Auto) 7.1 (3-14) % Eos % (Auto) 1.3 L (2-4) % Baso % (Auto) 0.9 (0-2) % Neut # (Auto) 2700 (5229-3330) /uL Lymph # (Auto) 1300 (6240-1113) /uL [place] # (Auto) 300 (0-900) /uL Eos # (Auto) 100 (0-450) /uL Baso # (Auto) 0 (0-100) /uL ESR 22 H (0-20) MM/HR D-Dimer 570 H (<500) ng/ml Sodium 138 (137-145) mmol/L Potassium 3.8 (3.4-5.1) mmol/L Chloride 108 H (98-107) mmol/L Carbon Dioxide 23 (22-32) mmol/L BUN 7 (7-17) mg/dL Creatinine 0.56 (0.52-1.04) mg/dL Estimated GFR > 60 (>60) mL/min BUN/Creatinine Ratio 12.5 (6-22) Glucose 99 (70-100) mg/dL Calcium 8.9 (8.4-10.2) mg/dL Total Bilirubin 0.6 (0.2-1.3) mg/dL AST 26 (14-36) IU/L ALT 13 (<35) IU/L Alkaline Phosphatase 54 (38-126) U/L Total Creatine Kinase 61 (30-135) U/L Troponin I < 0.012 (0.01-0.034) ng/mL C-Reactive Protein < 0.5 (<1.0) mg/dL NT-Pro-B Natriuret Pep 40 (<125) pg/mL Total Protein 7.0 (6.3-8.2) g/dL Albumin 4.3 (3.5-5.0) g/dL Globulin 2.7 (1.7-4.1) g/dL Albumin/Globulin Ratio 1.6 (1.0-2.8) Lipase 43 (23-300) U/L SARS-CoV-2 (PCR) Negative (Negative) Discharge Plan Departure Patient Disposition: Home Clinical Impression: Atypical pneumonia, Ground glass opacity present on imaging of lung Activity Restrictions/Additional Instructions: *You have been diagnosed with [atypical pneumonia] *What to do: *Please continue to take your regular medications as directed. [1 ] New medication prescriptions sent to your pharmacy: [Augmentin] [ ] New medication written as a paper prescription [ ] No new medications given *Please follow up with your primary care provider in 2-3 days, call for an appointment. Let them know you were seen in the Emergency Department and that we ask that you be seen in follow up. We will electronically transmit a record of today's note if your PCP is in our system. You came into the ER today with persistent chest pains since your ER visit a few days ago, we did cardiac evaluation with labs and EKG, we also checked a lab that can be elevated in the case of blood clots but can be elevated for other reasons, this came back slightly elevated for you and after discussion we did do a CT scan of your chest to further evaluate for possible clot, in addition to looking for blood clots the scan/radiologist also evaluated your lung tissue, there was no evidence of a clot in your lungs thankfully however you did have some changes to your lung tissue in the bases of the lungs likely indicating an infectious process (ground-glass opacity and some mild edema/inflammation). I suspect that you have an atypical pneumonia; possibly chronic, and it is possible that your vaping could be related to the lung changes seen and does sometimes put people at more risk for developing pneumonias. I would recommend that you consider cutting down or stopping vaping, you can talk to your primary care provider about this as well. In addition; particularly if your symptoms are not relieved by the antibiotics prescribed today, I would recommend that you still consider follow up with Cardiology and possibly pulmonology. I am hopeful that your symptoms will improve with antibiotics and that your symptoms have been due to this likely atypical pneumonia. All the other labs we checked today looked good as did your EKG. I hope you feel better soon. If you are feeling worse or developing new symptoms despite the antibiotics please make sure you seek re- evaluation. *If you do not have a primary care provider please contact the [facility] Resource line at [phone]. They will ask some questions about your medical history and help get you set up with a doctor in the community. *Return to Emergency Department if you should have any new, worsening or concerning symptoms, such as [fever greater than 101 F, shaking chills, worsening pain, persistent vomiting or other bothersome symptoms] Prescriptions: New amoxicillin-pot clavulanate 875-125 mg tablet 1 tab PO Q12H 10 Days Qty: 20 0RF No Action sertraline 100 mg tablet 200 mg PO DAILY Qty: 180 0RF Referrals: Andrea Chen MD [Primary Care Provider] - Stand Alone Forms: Patient Portal/API ED Sign-out <Mary Anne Liu, - Last Filed: 05/19/24 03:06> Cosign ED Attending Thanh Attestation: I was immediately available in the department for consultation. Case was discussed with myself, labs and imaging were reviewed.
--- NOTE | 2024-05-18 15:53 | EKG_ITS ---
[facility] [address] [place] [id number] Test Date: 2024-05-18 Pat Name: Torrie Clemens Department: [facility] Room: Gender: Female Side Sawyer: ALEXANDRO : 1985 Requested By: Order Number: [id number] Reading MD: Antwan Stewart Measurements Intervals [place] Rate: 84 P: 39 LA: 160 QRS: 35 QRSD: 82 T: 59 QT: 412 QTc: 486 Interpretive Statements Normal sinus rhythm Nonspecific T wave abnormality Electronically Signed On 05-19-2024 17:57:10 PDT by Antwan Stewart
[2024-05-18 16:36] LABS: Add Manual Diff / Slide Review NO; Basophils Absolute Auto 0 /uL (0-100); Basophils Percent Auto 0.9 % (0-2); Eosinophils Absolute Auto 100 /uL (0-450); Eosinophils Percent Auto 1.3 % (2-4); Hemoglobin 12.2 g/dL (12.0-16.0); Lymphocytes Absolute Auto 1300 /uL (1100-4500); Lymphocytes Percent Auto 29.3 % (25-40); Mean Corpuscular HGB Conc 33.9 % (30-36); Mean Corpuscular Hemoglobin 31.3 PG (26-34); Mean Corpuscular Volume 92.2 fL (80-100); Monocytes Absolute Auto 300 /uL (0-900); Monocytes Percent Auto 7.1 % (3-14); Neutrophils Absolute Auto 2700 /uL (1500-7000); Neutrophils Percent Auto 61.4 % (50-75); Platelet Count 248 X10^3/uL (150-400); Red Blood Cell Count 3.91 X10^6/uL (4.0-5.2); White Blood Cell Count 4.5 X10^3/uL (4.5-11.0)
[2024-05-18 16:44] LABS: D Dimer 570 ng/ml (<500)
[2024-05-18 16:51] LABS: Alanine Aminotransferase 13 IU/L (<35); Albumin 4.3 g/dL (3.5-5.0); Albumin Globulin Ratio 1.6 (1.0-2.8); Alkaline Phosphatase 54 U/L (38-126); Aspartate Aminotransferase 26 IU/L (14-36); BUN Creatinine Ratio 12.5 (6-22); Bilirubin Total 0.6 mg/dL (0.2-1.3); Blood Urea Nitrogen 7 mg/dL (7-17); Calcium 8.9 mg/dL (8.4-10.2); Carbon Dioxide 23 mmol/L (22-32); Chloride 108 mmol/L (98-107); Creatine Kinase 61 U/L (30-135); Estimated Glomerular Filt Rate > 60 mL/min (>60); Globulin 2.7 g/dL (1.7-4.1); Glucose 99 mg/dL (70-100); HEMOLYSIS 33 (0-50); Lipase 43 U/L (23-300); Potassium 3.8 mmol/L (3.4-5.1); Sodium 138 mmol/L (137-145)
[2024-05-18 17:00] LABS: NT-proBNP (BNP-Adult 18+) 40 pg/mL (<125)
[2024-05-18 17:02] LABS: Troponin I < 0.012 ng/mL (0.01-0.034)
[2024-05-18 17:05] VITALS: BP 114/56; PULSE 88; RESP 16; O2SAT 97
--- NOTE | 2024-05-18 17:17 | PC.NURSE ---
Patient able to ambulate with o2 saturation 98% with a heart rate at 101. She states that she feels fussy headed. Not dizzy, lightheaded.
[2024-05-18 17:25] LABS: C-Reactive Protein Quant < 0.5 mg/dL (<1.0)
--- NOTE | 2024-05-18 17:30 | DI.CT.S_ITS ---
PROCEDURE: CT ANGIO CHEST PE PROTOCOL INDICATIONS: chest pain, elevated dimer, exertional fatigue/dyspnea TECHNIQUE: After the administration of intravenous contrast, 2 mm thick sections acquired from the pulmonary apices to the posterior costophrenic angles. 3-dimensional maximum intensity projection (MIP) coronal and sagittal reformats were then acquired through the thorax. For radiation dose reduction, the following was used: automated exposure control, adjustment of mA and/or kV according to patient size. COMPARISON: None. FINDINGS: Image quality: Diagnostic Lungs and pleura: Mild basal ground-glass opacities. No dense airspace disease Trace bilateral effusions. Mediastinum, heart, and esophagus: No acute pulmonary embolism. The esophagus appears unremarkable. No pathologic lymph nodes by size criteria Chest wall and thyroid: Unremarkable Upper abdomen: No gross abnormality on these arterial phase images Bones: No acute or suspicious osseous finding IMPRESSION: No acute pulmonary embolism. Mild basal ground-glass opacities and trace effusions. Findings could represent atypical infection versus edema. Consider future imaging surveillance to assess for resolution. Dictated by: David Nath M.D. on 05/18/2024 at 17:35 Approved by: David Nath M.D. on 05/18/2024 at 17:37
[2024-05-18 17:41] LABS: Erythrocyte Sedimentation Rate 22 MM/HR (0-20)
[2024-05-18 18:13] LABS: COVID19 -Nasal RAPID Negative (Negative)
[2024-05-18] MEDS: AMOXICILLIN/CLAV 875/125 MG 1 TAB PO (18:45)
[2024-05-18 18:46] VITALS: BP 102/64; PULSE 77; RESP 16; O2SAT 99
== END 2024-05-18 18:57 | disposition home or self-care (01) ==
PROVIDERS: Emergency Provider Student in an Organized Health Care Education/Training Program; Family Provider Family Medicine; PCP Family Medicine
DX: J18.9 Pneumonia, unspecified organism (principal); R91.8 Other nonspecific abnormal finding of lung field; R06.02 Shortness of breath; R79.89 Other specified abnormal findings of blood chemistry; Z11.52 Encounter for screening for COVID-19
CPT/HCPCS: 36415; 71275; 80053; 82550; 83690; 83880; 84484; 85025; 85379; 85651; 86140; 87635; 93005; 99284; Q9967

== ENCOUNTER → 2025-02-27 11:46 | Outpatient (CLI) | payer OTHER, MEDICAID, SELFPAY ==
[2025-02-27 12:59] LABS: Hematocrit 35.9 % (36-46); Hemoglobin 12.5 g/dL (12.0-16.0)
[2025-02-27 13:22] LABS: Alanine Aminotransferase 17 IU/L (<35); Albumin 4.4 g/dL (3.5-5.0); Albumin Globulin Ratio 1.7 (1.0-2.8); Alkaline Phosphatase 68 U/L (38-126); Aspartate Aminotransferase 24 IU/L (14-36); Bilirubin Total 0.5 mg/dL (0.2-1.3); Blood Urea Nitrogen 11 mg/dL (7-17); Calcium 9.2 mg/dL (8.4-10.2); Carbon Dioxide 28 mmol/L (22-32); Chloride 104 mmol/L (98-107); Estimated Glomerular Filt Rate > 60 mL/min (>60); Globulin 2.6 g/dL (1.7-4.1); Glucose 110 mg/dL (70-99); HEMOLYSIS < 15 (0-50); Sodium 139 mmol/L (137-145)
[2025-02-27 13:25] LABS: HEMOLYSIS < 15 (0-50); Iron 123 ug/dL (37-170)
[2025-02-27 13:37] LABS: Percent Iron Saturation 48 % (15-50); Total Iron Binding Capacity 258 ug/dL (265-497); Transferrin 230 mg/dL (206-381)
[2025-02-27 14:29] LABS: Hemoglobin A1C% w Est Avg Glu 5.1 % (4.0-6.0)
[2025-02-27 15:29] LABS: Follicle Stimulating Hormone 4.78 mIU/mL
== END ==
PROVIDERS: PCP Family Medicine; Referring Provider Physician Assistant; Visit Provider Physician Assistant
DX: R74.01 Elevation of levels of liver transaminase levels (principal); Z86.32 Personal history of gestational diabetes; Z68.33 Body mass index [BMI] 33.0-33.9, adult; E66.9 Obesity, unspecified; R53.83 Other fatigue; R23.2 Flushing; R73.01 Impaired fasting glucose; Z90.710 Acquired absence of both cervix and uterus; R61 Generalized hyperhidrosis
CPT/HCPCS: 36415; 80053; 82672; 83001; 83036; 83498; 83540; 83550; 84443; 85014; 85018

== ENCOUNTER → 2025-03-16 12:10 | Outpatient (CLI) | payer OTHER, MEDICAID, SELFPAY ==
[2025-03-20 15:08] LABS: Estriol,Serum <0.2 ng/mL (.); Estrone,Serum 39 pg/mL (.)
== END ==
LOC: LAB 12:11
PROVIDERS: PCP Family Medicine; Referring Provider Obstetrics & Gynecology; Visit Provider Obstetrics & Gynecology
DX: E28.0 Estrogen excess (principal)
CPT/HCPCS: 36415; 82670; 82677; 82679

== ENCOUNTER → 2025-03-22 15:27 | Outpatient (CLI) | payer OTHER, MEDICAID, SELFPAY ==
--- NOTE | 2025-03-22 15:28 | DI.CT.S_ITS ---
PROCEDURE: CT ABDOMEN PELVIS W CON INDICATIONS: right lower quadrant pain TECHNIQUE: After the administration of intravenous contrast, axial sections acquired from the lung bases to the pubic symphysis. Coronal and sagittal reformats were performed. For radiation dose reduction, the following was used: automated exposure control, adjustment of mA and/or kV according to patient size. COMPARISON: None. FINDINGS: Image quality: Diagnostic. Lower Chest: No significant findings. ABDOMEN: Liver: No solid mass. Gallbladder: Small calculus in the gallbladder. No inflammatory changes. Biliary ducts: No biliary dilation. Pancreas: No ductal dilation. Spleen: Size is within normal limits. Adrenal Glands: No adrenal nodules. Kidneys and Ureters: No hydronephrosis. No solid mass. No complex renal cystic lesion which requires follow up. Stomach and Bowel: Normal colonic caliber, without significant wall thickening. The appendix is normal. Moderate to large amount of stool seen throughout the colon. No obstructing lesion seen. Peritoneum: No abnormal intraperitoneal fluid. No free air. Ventral Wall: No significant ventral hernia. Abdominal Nodes: No retroperitoneal or mesenteric adenopathy by size criteria. Vessels: Aorta and inferior vena cava are normal in size. PELVIS: Pelvic Organs: Unremarkable. Bladder: No bladder wall thickening, accounting for underdistention. Pelvic Nodes: No enlarged lymph nodes. Miscellaneous: No inguinal hernias are seen. Bones: No aggressive osseous abnormality. IMPRESSION: No acute intra-abdominal abnormality seen. Constipation. Dictated by: Wallace Camarillo M.D. on 03/22/2025 at 21:13 Approved by: Wallace Camarillo M.D. on 03/22/2025 at 21:17
== END ==
PROVIDERS: PCP Family Medicine; Referring Provider Obstetrics & Gynecology; Visit Provider Obstetrics & Gynecology
DX: K80.20 Calculus of gallbladder without cholecystitis without obstruction (principal); R10.31 Right lower quadrant pain; K59.00 Constipation, unspecified
CPT/HCPCS: 74177; Q9967

== ENCOUNTER 2025-05-08 12:49 | Day surgery (SDC) | payer OTHER, SELFPAY ==
[2025-05-08] VITALS (7 sets, daily range): BP systolic 105–122; BP diastolic 53–78; PULSE 69–86; RESP 16–17; TEMP 36.1–36.9; O2SAT 96–100
--- NOTE | 2025-05-08 | PATH_ITS ---
[facility] Accession Number: [id number] No. of containers..02 Tissue . 01 Material submitted: . PART A: colon - SIGMOID POLYP PART B: colon - SIGMOID POLYP 20CM . 01 Diagnosis: Part A: SIGMOID POLYP: Hyperplastic polyp. . Part B: SIGMOID POLYP 20CM: Hyperplastic polyp. [facility] 05/16/20251526 Local . 01 Electronically signed: . Wilder Berman MD, Pathologist NPI- [id number] . 01 Gross description: . A. Received in formalin with two identifiers and 1. Sigmoid polyp. The specimen consists of one ramos-white soft tissue fragment measuring 0.6 x 0.4 x 0.4 cm. The specimen is entirely submitted in cassette A1. . B. Received in formalin with two identifiers and 2. Sigmoid polyp 20 cm. The specimen consists of two ramos-white soft tissue fragments measuring 0.5 x 0.4 x 0.4 cm and 0.4 x 0.3 x 0.3 cm. The specimen is entirely submitted in cassette B1. ([id number]) /MRV 05/16/20251526 Local . 01 Pathologist provided ICD-10: K63.5 . 01 CPT . 040653, [id number] Specimen Comment: A courtesy copy of this report has been sent to [facility] Pathology Performed at: [address] [id number] MD Wilder Berman MD Phone: [phone]
[2025-05-08] MEDS: LACTATED RINGERS 1,000 ML 42 ML IV (13:38)
--- NOTE | 2025-05-08 14:10 | PM.PREOP ---
Pre-operative Note Interval Note History & Physical reviewed/Exam performed by Physician: Yes Changes to H&P: No ASA Class (for procedural sedation): I
--- NOTE | 2025-05-08 14:20 | PM.OP.COLON ---
Operative Date/Time/Diagnoses Date of procedure: 05/08/25 Time of procedure: 15:20 Pre-op diagnosis: H/O polyps, due for colonoscopy Post-op diagnosis: other (sigmoid polyps, int/ext hemorrhoids) Procedure & Clinicians Study performed: Colonoscopy with polypectomy Same procedure(s) as scheduled: Yes Indications: 39yo F, h/o polyps, constipation Surgeon: Armando Hay Anesthesia Type: MAC +/- Procedure Notes SCOAP/Timeout: Performed Procedure in detail: Colonoscopy Patient placed in left lateral recumbent position. Time out was performed. Procedural sedation was administered by anesthesia. Examination began with a thorough inspection of the perianal area. There was no evidence of fissures, fistulae, external hemorrhoids or cutaneous malignancy. The colonoscope was then placed into the rectum and the lumen was insufflated with carbon dioxide. The scope was carefully advanced forward. Ultimately the cecum was intubated and confirmed by identification of the ileocecal valve, the appendiceal orifice and the confluence of the taenia. The scope was then slowly withdrawn examining the colon thoroughly in all directions. In the rectum, retroflexion of the scope was performed for inspection of the distal rectum and anal canal. ?Significant colonoscopy findings: ?1. Quality of the preparation-good, [place] 1-2, improved with irrigation/suction ?2. Two, small, <5mm, sessile, benign-appearing, sigmoid polyps, removed with cold snare and retrieved for pathology; plan next screening colonoscopy in 10 years 3. Internal hemorrhoids in continuity with externals, thus, not candidate for banding Scope withdrawal time: 26 minutes Findings: internal hemorrhoids and polyp(s) Specimen(s): other (polyps) Complications: none Impression: Sigmoid polyps, await path Int/ext hemorrhoids, not candidate for internal banding Post-procedure Recommendations: Colonoscopy in 10 years Plan for aftercare: PACU then home Follow up: as needed Disposition: PACU
== END 2025-05-08 16:05 | disposition home or self-care (01) ==
PROVIDERS: PCP Family Medicine; Referring Provider Surgery; Visit Provider Surgery
PROC: 0DJD8ZZ Inspection of Lower Intestinal Tract, Via Natural or Artificial Opening Endoscopic (ICD-10-PCS; CPT 45378; principal; 2025-05-08 15:00)
DX: K59.00 Constipation, unspecified (principal); K64.8 Other hemorrhoids; K62.5 Hemorrhage of anus and rectum; R10.31 Right lower quadrant pain; F17.290 Nicotine dependence, other tobacco product, uncomplicated; Z86.0109 Personal history of other colon polyps; K63.5 Polyp of colon
CPT/HCPCS: 45385; J2704